=== PATIENT | male | born 1955 | race African-American/Black ===

== ENCOUNTER 2018-08-23 20:57 | Inpatient (IN) | payer SELFPAY ==
[~2018-08-23 20:57] MED LIST: ISOVUE-370 76%-LOCM 1 ML ONE
--- NOTE | 2018-08-23 21:15 | CT ---
CT BRAIN WITHOUT IV CONTRAST: HISTORY: Level I stroke alert. Right-sided weakness. Unable to form complete sentences. FINDINGS: There is some patchy atrophy and chronic white matter ischemic changes noted bilaterally. Minimal lo w attenuation change in the left frontal centrum semiovale region, as well as the left posterior fron marcel gyral regions, evidence for old infarcts. No focal mass or midline shift. No intraaxial or extr aaxial hemorrhage. IMPRESSION: Some chronic white matter ischemic changes. Some patchy small areas of infarction involving the left frontal centrum semiovale region and left posterior frontal gyral region. No mass or midline shift. No acute hemorrhage. Findings discussed with Dr. Dumont at 2105 hours. No mass or bleed. CODE CR POS: KM
[2018-08-23 21:19] LABS: #Eosinphils 0.1 thou/uL (0.0-0.7); #Lymphocytes 1.7 thou/uL (1.20-3.40); #Monocytes 0.6 thou/uL (0.11-0.59); #Neutrophils 3.4 thou/uL (1.40-6.50); %Basophils 0.7 % (0.0-1.0); %Eosinophils 1.3 % (0.0-10.0); %Lymphocytes 28.7 % (21.0-51.0); %Monocytes 10.8 % (0.0-10.0); %Neutrophils 58.5 % (42.0-75.0); Hemoglobin 15.3 g/dL (14.0-18.0); Mean Corpuscular HGB CONC 33.3 g/dL (32.0-36.0); Mean Corpuscular Hemoglobin 29.8 pg (27.0-31.0); Mean Corpuscular Volume 89.6 fL (78.0-98.0); Mean Platelet Volume 7.7 fL (7.4-10.4); Platelet Count 341 thou/uL (130-400); RBC Distribution Width 13.9 % (11.5-14.5); Red Blood Cell (RBC) Count 5.12 mill/uL (4.70-6.10); White Blood Cell (WBC) Count 5.9 thou/uL (4.8-10.8)
[2018-08-23 21:23] LABS: INR-International Normal Ratio 1.1; PTT 34.4 SEC (22.9-36.1); Prothrombin Time 14.5 SEC (12.0-14.7)
[2018-08-23] MEDS ORDERED: Aspirin 325 MG TAB ONE (21:28)
[2018-08-23 21:31] LABS: ALT (SGPT) 41 U/L (8-55); AST (SGOT) 21 U/L (5-34); Alkaline Phosphatase 133 U/L (40-150); Anion Gap 14 mmol/L (10-20); BUN (Urea Nitrogen) 17 mg/dL (8.4-25.7); Bilirubin, Total 0.4 mg/dL (0.2-1.2); CK (CPK) 72 U/L (30-200); Calc. Creatinine Clearance 0 mL/min (70-130); Calcium 9.6 mg/dL (7.8-10.44); Carbon Dioxide 19 mmol/L (23-31); Chloride 107 mmol/L (98-107); Estimated GFR-MDRD 66; Globulin 4.1 g/dL (2.4-3.5); Glucose 90 mg/dL (80-115); Potassium 4.1 mmol/L (3.5-5.1); Protein, Total 8.1 g/dL (5.8-8.1); Sodium 136 mmol/L (136-145)
--- NOTE | 2018-08-23 21:46 | CT ---
CT ANGIOGRAM HEAD WITH 3D RENDERING: CT ANGIOGRAM NECK WITH 3D RENDERING: FINDINGS: HEAD: There appears to be some mild narrowing and irregularity of several of the left middle cerebra l artery branches, but no evidence for major branch occlusion. The M1 segment is patent. There are some atherosclerotic calcific changes within the right and left intracranial internal carotid arterie s, with very prominent calcified plaque and some potentially up to 50% narrowing (by NASCET criteria) of both right and left intracranial internal carotid arteries but, again, no evidence for occlusion. The vertebrobasilar arteries are unremarkable. NECK: There are some minimal calcified plaques at the origins of the right and left internal carotid arteries, but no significant stenosis, using NASCET criteria. Right and left vertebral arteries are unremarkable. There are noted to be some minimally enlarged hilar lymph nodes, as well as some medi astinal lymph nodes, consistent with some borderline adenopathy. IMPRESSION: 1. No evidence for M1 segment occlusion. 2. Minimal atherosclerosis and mild narrowing of several of the left middle cerebral artery branches . 3. Prominent calcified plaques involving both the right and left intracranial carotid arteries with potentially up to 50% stenosis but no evidence for occlusion. 4. Borderline hilar and mediastinal lymphadenopathy. Some atherosclerotic calcific plaques involvin g both right and left internal carotid artery origins, but no evidence for significant stenosis using NASCET criteria. Findings discussed with Dr. Dumont at 9:32 p.m. CODE CR POS: BLANQUITA
[2018-08-24 01:02] VITALS: BMI 25.9
[2018-08-24] MEDS ORDERED: hydrALAZINE 20 MG/ML VIAL SLOW IVP PRN (13:16)
[2018-08-24] MEDS ORDERED: Acetaminophen 500 MG TAB PO PRN (13:16)
[2018-08-24] MEDS ORDERED: Ondansetron PF 4 MG/2 ML Vial IVP PRN (13:16)
[2018-08-24] MEDS ORDERED: Ondansetron ODT 4 MG TAB PO PRN (13:16)
--- NOTE | 2018-08-24 14:23 | HP ---
PRIMARY CARE PROVIDER: [facility]. CHIEF COMPLAINT: Stroke. HISTORY OF PRESENT ILLNESS: This is a 63-year-old -Swedish male, who presented to [facility] Emergency Department and transferred from [place], [place] after apparently being unable to speak with right-sided weakness and difficulty walking. The history is obtained after piecing together information from the emergency department records as well as from the patient who has severe expressive aphasia and unable to provide any coherent history. The patient apparently was noted by EMS personnel after aphasia, right arm and right lower extremity weakness over 15 hours duration. The patient states he had a prior similar stroke in the past, which was mild without specific residual deficits. The patient does have a history of hypertension, hyperlipidemia, taking oral medications. 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 The patient does admit to tobacco use. In the emergency room, the patient underwent general evaluation including CT imaging of the brain showing evidence of ischemic changes in the left frontal centrum semiovale region and left posterior frontal gyral region. The patient received aspirin [address] angiogram of the head and neck showing no significant occlusion requiring acute intervention. The patient was transferred to the Stroke Unit for further evaluation. PAST MEDICAL HISTORY: 1. Hypertension. 2. Hyperlipidemia. 3. Tobacco use. 4. History of prior CVA/TIA. PAST SURGICAL HISTORY: Status post hernia repair. CURRENT MEDICATIONS: 1. Lisinopril 20 mg p.o. daily. 2. Lipitor 40 mg p.o. daily. ALLERGIES: NO KNOWN DRUG ALLERGIES. FAMILY HISTORY: Unobtainable due to the patient's expressive aphasia. SOCIAL HISTORY: The patient resides in the [place], [place] area. Smokes up to half a pack of cigarettes daily. No alcohol. No illicit drug use. 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 REVIEW OF SYSTEMS: Unobtainable due to the patient's expressive aphasia. PHYSICAL EXAMINATION: VITAL SIGNS: Currently, blood pressure 142/93, pulse 71, respiratory rate 16, temperature 99 degrees Fahrenheit, and O2 saturation 99% on room air. GENERAL APPEARANCE: This is a 63-year-old -Swedish male, alert, with expressive aphasia. HEENT: Pupils are equal, round, and reactive to light and accommodation. Extraocular muscles are intact. No scleral icterus. No conjunctival injection. Nares patent. OP is clear. Teeth in fair repair. Mild right facial asymmetry noted. NECK: Supple. No cervical adenopathy. No thyromegaly. No carotid bruits. No JVD appreciated. Cervical spine with full active and passive range of motion. No meningeal signs noted. CHEST: Lungs are clear to auscultation bilaterally. CARDIOVASCULAR: S1 and S2 without noted murmur, rub, or gallop. ABDOMEN: Rounded, soft, nontender, and nondistended. Bowel sounds are positive in all 4 quadrants. There is no hepatosplenomegaly. No abdominal bruits. No rebound or guarding appreciated. EXTREMITIES: Warm and dry with fair turgor. No clubbing, cyanosis, or asymmetric edema appreciated. Pulses palpable distally at the dorsalis pedis, posterior tibial, and popliteal arteries bilaterally. Capillary refill less than 2 seconds. NEUROLOGIC: Expressive aphasia noted. Dysarthria. Right upper extremity weakness with mild contracture of the right hand. Right-hand dominant. No pronator drift noted. Follows all commands appropriately. Right upper and lower extremity weakness noted. PERTINENT LAB AND X-RAY FINDINGS: Sodium 136, potassium 4.1, chloride 107, CO2 of 19, BUN 17, creatinine 1.34, estimated GFR 66, glucose 90, and calcium 9.6. LFTs within normal limits. Troponin I negative x3. Albumin 4.0. CBC showed a white blood cell count of 5.9, hemoglobin 15, hematocrit 46, and platelet count 341 with 59% neutrophils. PT 14.5, INR 1.1, and PTT 34.4. CT of the brain without contrast dated 08/23/2018 showed chronic white matter ischemic changes. Patchy areas of infarct involving the left frontal centrum semiovale region and left posterior frontal gyral region. No acute hemorrhage. CT angiogram of the head and neck showed no significant focal stenosis or occlusion. EKG dated 08/23/2018 showed sinus mechanism with heart rates in the 80s. Normal R-wave progression noted in the precordial leads. Normal axis. No acute ST-T wave changes appreciated. ASSESSMENT AND PLAN: 1. Acute left-sided ischemic cerebrovascular accident. The patient will be admitted to the stroke unit. We will continue aspirin 325 mg daily. Proceed with MRI imaging of the brain to further delineate intracranial anatomy. Check 2D transthoracic echocardiogram. Neurology consult pending. Continue general stroke protocol. 2. Hypertension. We will confirm home antihypertensive regimen and monitor clinical response. Continue lisinopril 20 mg p.o. daily. 3. Hyperlipidemia. Continue Lipitor 40 mg p.o. daily. Check fasting lipid profile in the a.m. 4. Tobacco abuse. We will offer smoking cessation resources prior to discharge. 5. Chronic kidney disease stage 2. Avoid nephrotoxic agents and limit contrast exposure. Repeat creatinine in the a.m. 6. Prophylaxis. SCDs while in bed. Pepcid 20 mg p.o. b.i.d.. CODE STATUS: Full. Surrogate medical decision maker not identified. Job ID: [id number]
--- NOTE | 2018-08-24 16:30 | MRI ---
MRI BRAIN WITHOUT CONTAST: HISTORY: Stroke, right-sided weakness. FINDINGS: Correlation is made with the CT and CTA from yesterday. There is a small area of restricted diffusion in the left posterior frontal lobe. A few foci of rest ricted diffusion is also seen in the anterior left parietal lobe. There are multiple foci of T2 prol ongation in the periventricular white matter consistent with chronic small-vessel ischemic disease. No evidence of hemorrhage, midline shift, or abnormal extraaxial fluid collections is seen. The ventricular size is appropriate and the basilar cisterns are patent. The visualized paranasal si nuses and mastoid air cells are well aerated. IMPRESSION: Small acute infarctions left frontoparietal region. POS: C
[2018-08-24] MEDS: Atorvastatin Calcium 40 MG TAB PO SCH (20:33)
[2018-08-24] MEDS: Famotidine 20 MG TAB PO SCH (20:33)
[2018-08-25 06:33] LABS: Anion Gap 13 mmol/L (10-20); BUN (Urea Nitrogen) 18 mg/dL (8.4-25.7); Calc. Creatinine Clearance 88 mL/min (70-130); Calcium 9.9 mg/dL (7.8-10.44); Carbon Dioxide 22 mmol/L (23-31); Cardiac Risk 4.8 (Less than 4.5); Chloride 105 mmol/L (98-107); Cholesterol 148 mg/dl (< 200 Desired); Estimated GFR-MDRD 84; Glucose 86 mg/dL (80-115); HDL Cholesterol 31 mg/dL (>60 Neg Risk); LDL Cholesterol, Calculated 91 mg/dL; Sodium 136 mmol/L (136-145); Triglycerides 128 mg/dL (Less than 150)
[2018-08-25 06:42] LABS: Band 2 % (5-11); Eosinophils 9 % (0-10); Hemoglobin 14.7 g/dL (14.0-18.0); Lymphocytes 28 % (21-51); MDiff Complete? YES; Mean Corpuscular HGB CONC 32.8 g/dL (32.0-36.0); Mean Corpuscular Hemoglobin 29.1 pg (27.0-31.0); Mean Corpuscular Volume 88.7 fL (78.0-98.0); Mean Platelet Volume 7.3 fL (7.4-10.4); Monocytes 13 % (0-10); Neutrophil 47 % (42-75); Platelet Count 331 thou/uL (130-400); Reactive Lymphocytes 1 % (0-10); Red Blood Cell (RBC) Count 5.06 mill/uL (4.70-6.10); White Blood Cell (WBC) Count 4.7 thou/uL (4.8-10.8)
[2018-08-25] MEDS: Famotidine 20 MG TAB PO SCH ×2 (09:13→21:19)
[2018-08-25] MEDS: Lisinopril 20 MG TAB PO SCH (09:13)
[2018-08-25] MEDS: Aspirin 325 mg Enteric Coated Tablet PO SCH (09:13)
--- NOTE | 2018-08-25 09:57 | PRG ---
DATE OF SERVICE: 08/25/2018 SUBJECTIVE: The patient denies any major concerns at this point. He basically is able to communicate that he would like some food. Other than that, he is doing okay. He does tell me that he continues to work. He is not , but does have some family around who will be able to help him. OBJECTIVE: VITAL SIGNS: Temperature is 97.6, pulse 67, respirations 16, O2 saturation 98% on room air, and BP 142/91. GENERAL APPEARANCE: Age-appropriate male. He is in no distress. He is awake, alert, and oriented. As best I can elucidate, he seems to be fairly appropriate. NEUROLOGICAL: The patient has the ability to shake his head appropriately to answer questions. He can speak a few words and seems to be comprehending everything that is said to him. Follows commands appropriately. Just having some difficulty with expressive aphasia. He has some mild persistent weakness on the right side. It is 4+/5, both upper and lower extremities. Left side appears to be a 5/5 strength with normal sensation throughout. HEENT: Cranial nerves appear to be intact. He has no OP lesions. HEART: Regular rate and rhythm without murmurs. LUNGS: Clear bilaterally with good chest wall expansion and air exchange. ABDOMEN: Soft, nontender, and nondistended. Positive bowel sounds. EXTREMITIES: Warm and dry without edema. LABORATORY DATA: White count 4.7, hemoglobin 14.7, sodium 136, potassium 4.0, CO2 22, BUN 18, creatinine 1.08. Cholesterol 148, LDL 91. HDL 31, triglycerides 128. MRI of the brain from yesterday does show acute small infarction in the left frontoparietal region. IMPRESSION AND PLAN: 1. Acute cerebrovascular accident of the left frontoparietal area with some expressive aphasia and right-sided weakness. Today, the patient will be evaluated by PT, OT, Speech and Neurology. We will also have case management work with the patient in order to help determine what needs he will have going forward we might be able to assist with. In the meantime, continue with aspirin and statin and try to get him on a diet as soon as he is evaluated by Speech. 2. History of hypertension. Watch the patient's blood pressure checked this morning. He is not fully relaxing his arm probably giving some falsely high readings. Continue with his usual home medications and tolerating some hypertension in light of the stroke. 3. Hyperlipidemia. Continue with his statin. 4. Tobacco abuse. Counseled the patient regarding need to stop that going forward in order to reduce risk of future strokes. We will continue to work with him on that. 5. Chronic kidney disease, stage 2, stable. 6. Continue gastrointestinal prophylaxis with Pepcid and sequential compression devices while in bed. Job ID: [id number] [facility]
--- NOTE | 2018-08-25 20:55 | CON ---
DATE OF CONSULTATION: 08/25/2018 CONSULTING PHYSICIAN: Hospitalist Services. IMPRESSION: 1. Left parietal stroke with expressive aphasia and right upper extremity weakness. 2. Hyperlipidemia. PLAN: 1. Continue statin. 2. Add aspirin. 3. The patient can be discharged home today. HISTORY OF PRESENT ILLNESS: Mr. Adair is a 63-year-old man, who presented with acute onset of right-sided weakness involving the hand and loss of speech. The initial CT scan of brain showed some small-vessel ischemic changes, but no evidence of hemorrhage. CTA showed bilateral distal internal carotid stenosis of around 50%. Subsequent MRI of the brain shows an acute area of infarction involving the left parietal lobe that is relatively small. His echocardiogram has been done, but the results are pending. PAST MEDICAL HISTORY: As listed above. ALLERGIES: NONE. SOCIAL HISTORY: No tobacco or alcohol use. FAMILY HISTORY: Not obtainable. REVIEW OF SYSTEMS: Not obtainable due to his expressive aphasia. PHYSICAL EXAMINATION: GENERAL: He is a well-nourished, middle-aged man, in no acute distress. VITAL SIGNS: Stable. He has been afebrile. HEENT: Pupils are equal and reactive. Conjunctivae clear. Oropharynx is clear. Cranium, normocephalic and atraumatic. NECK: Supple. No lymphadenopathy. EXTREMITIES: No cyanosis, clubbing, or edema. NEUROLOGIC: He was alert and cooperative. He could follow commands well. His speech output was markedly limited to only a few words as there was some dysarthric quality to it as well. His cranial nerves otherwise were intact. Motor exam showed significant weakness in the hand for extension and flexion of fingers and wrist. Rapid alternating movements were markedly impaired in the right hand. He had a fix on the right with arm roll testing. He was able to sit and stand independently. Sensation was subjectively decreased in the right hand as compared to the left. No abnormal movements were seen. EKG shows a sinus rhythm. SUMMARY: A middle-aged man with some partial stenosis of the internal carotids with subsequent probable thromboembolic event. I agree with aspirin and continuing the statin. Hopefully, his speech will return with time. Job ID: [id number]
[2018-08-25] MEDS: Atorvastatin Calcium 40 MG TAB PO SCH (21:18)
[2018-08-26] MEDS: Lisinopril 20 MG TAB PO SCH (08:30)
[2018-08-26] MEDS: Famotidine 20 MG TAB PO SCH (08:31)
[2018-08-26] MEDS: Aspirin 325 mg Enteric Coated Tablet PO SCH (08:31)
[2018-08-26 12:11] VITALS: BP 141/81; TEMP 98
== END 2018-08-26 15:42 | disposition home health service (06) | DRG 65 ==
LOC: ERS 20:57 → 2SE 21:54
PROVIDERS: ADMIT Hospitalist; ATTEND Hospitalist
DX: I63.9 Cerebral infarction, unspecified (principal); G81.91 Hemiplegia, unspecified affecting right dominant side; R47.01 Aphasia; E78.5 Hyperlipidemia, unspecified; I12.9 Hypertensive chronic kidney disease with stage 1 through stage 4 chronic kidney disease, or unspecified chronic kidney disease; N18.2 Chronic kidney disease, stage 2 (mild); F17.200 Nicotine dependence, unspecified, uncomplicated
CPT/HCPCS: 36415; 36416; 70450; 70496; 70498; 70551; 80048; 80053; 80061; 82550; 84484; 85007; 85025; 85027; 85610; 85730; 86803; 87340; 87389; 93005; 93306; Q9966